=== PATIENT | male | born 1975 | race Caucasian/White ===

== ENCOUNTER 2020-11-08 18:04 | Emergency (ER) | payer SELFPAY ==
[~2020-11-08] VITALS: Ht 170.2 cm; Wt 108.9 kg
[2020-11-08 18:05] VITALS: BP 133/88
--- NOTE | 2020-11-08 18:44 | NUR ---
Patient discharged with v/s stable, AAOX4, IN NAD. Written and verbal after care instructions given and explained. Patient verbalized understanding. Ambulatory with steady gait. All questions addressed prior to discharge. Advised to follow up with PMD. PT IN AGREEMENT WITH PLAN OF CARE.
== END 2020-11-08 18:43 | disposition home or self-care (01) ==
LOC: MED 18:04
DX: F10.129 Alcohol abuse with intoxication, unspecified (principal); Y90.9 Presence of alcohol in blood, level not specified
CPT/HCPCS: 99283

== ENCOUNTER 2024-02-01 07:08 | Emergency (ER) | payer MEDICAID ==
[~2024-02-01] VITALS: Ht 172.7 cm; Wt 95.3 kg
[2024-02-01 07:28] VITALS: BP 124/64; PULSE 122; RESP 20; TEMP 98.3; O2SAT 98
[2024-02-01 07:54] LABS: BASOPHILS # (AUTO) 0.1 K/uL (0.00-0.22); BASOPHILS % (AUTO) 0.7 % (0.0-2.0); EOSINOPHILS % (AUTO) 0.1 % (0.0-4.0); HEMATOCRIT 35.3 % (36-52); HEMOGLOBIN 12.3 g/dL (12.0-18.0); LYMPHOCYTES # (AUTO) 3.3 K/uL (2.0-11.5); LYMPHOCYTES % (AUTO) 29.5 % (20.5-51.1); MEAN CORPUSCULAR HEMOGLOBIN 33 pg (27-31); MEAN CORPUSCULAR HGB CONC 35 g/dL (33-37); MEAN CORPUSCULAR VOLUME 95.8 fL (80-94); MONOCYTES # (AUTO) 0.6 K/uL (0.8-1.0); MONOCYTES % (AUTO) 5.7 % (1.7-9.3); NEUTROPHILS # (AUTO) 7.3 K/uL (1.8-7.7); PLATELET COUNT (AUTO) 595 K/uL (140-450); RED BLOOD CELL COUNT(AUTO) 3.68 MIL/uL (4.20-6.10); RED CELL DISTRIBUTION WIDTH 14.2 % (11.6-13.7); WHITE BLOOD COUNT (AUTO) 11.3 K/uL (4.8-10.8)
[2024-02-01 08:10] LABS: ANION GAP 18.9 (8-16); CALCIUM 8.6 mg/dL (8.5-10.1); CARBON DIOXIDE 25.5 mmol/L (21-32); CREATININE 0.9 mg/dL (0.6-1.3); POTASSIUM 3.4 mmol/L (3.5-5.1)
[2024-02-01 08:15] LABS: BILIRUBIN,DIRECT 0.1 mg/dL (0.0-0.3); TOTAL BILIRUBIN 0.4 mg/dL (0.0-1.0); TOTAL PROTEIN, SERUM 7.9 g/dL (6.4-8.2)
[2024-02-01] MEDS: NACL 0.9% 2,000 ML IV ONE (08:28)
[2024-02-01] MEDS: THIAMINE 200 MG/2 ML VIAL IV ONE (08:31)
[2024-02-01 11:11] VITALS: O2SAT 94
[2024-02-01 13:12] VITALS: O2SAT 96
[2024-02-01] MEDS: KETOROLAC 30 MG/ML VIAL IVP ONE (14:02)
[2024-02-01 14:05] LABS: AMPHETAMINE, URINE NEGATIVE ng/ml (NEG <=1000); BARBITURATE, URINE NEGATIVE ng/ml (NEG <=200); BENZODIAZEPINE, URINE NEGATIVE ng/mL (NEG <=200); CANNABINOID, URINE NEGATIVE ng/mL (NEG <=50); COCAINE, URINE NEGATIVE ng/mL (NEG <=300); OPIATE, URINE NEGATIVE ng/mL (NEG <=2000); PHENCYCLIDINE SCREEN,URINE NEGATIVE ng/mL (NEG <=25)
[2024-02-01] MEDS: NACL 0.9% 1,000 ML IV ONE (16:16)
[2024-02-01 16:20] VITALS: O2SAT 94
[2024-02-01 16:42] VITALS: BP 122/63; PULSE 110; RESP 16; TEMP 98.1; O2SAT 96
== END 2024-02-01 16:42 | disposition home or self-care (01) ==
LOC: MED 07:08
DX: F10.129 Alcohol abuse with intoxication, unspecified (principal); R41.82 Altered mental status, unspecified; E86.0 Dehydration; Y90.9 Presence of alcohol in blood, level not specified
CPT/HCPCS: 36415; 70450; 80048; 80076; 80305; 85025; 96361; 96374; 96375; 99285; G0482; J1885; J3411

== ENCOUNTER 2024-02-06 10:43 | Inpatient (IN) | payer MEDICAID ==
[~2024-02-06] VITALS: Ht 170.2 cm; Wt 104.0 kg
[2024-02-06 10:55] VITALS: BP 149/92; PULSE 120; RESP 22; TEMP 98.1; O2SAT 98
[2024-02-06] MEDS: NACL 0.9% 1,000 ML IV ONE (11:48)
[2024-02-06] MEDS: LORazepam 1 MG TAB PO ONE (11:53)
[2024-02-06] MEDS: LORazepam 2 MG/ML VIAL IVP ONE (11:58)
[2024-02-06 12:00] LABS: BASOPHILS % (AUTO) 0.6 % (0.0-2.0); EOSINOPHILS % (AUTO) 0.2 % (0.0-4.0); HEMOGLOBIN 11.2 g/dL (12.0-18.0); LYMPHOCYTES # (AUTO) 1.6 K/uL (2.0-11.5); MEAN CORPUSCULAR HEMOGLOBIN 33 pg (27-31); MEAN CORPUSCULAR HGB CONC 35 g/dL (33-37); MEAN CORPUSCULAR VOLUME 95.2 fL (80-94); MONOCYTES # (AUTO) 0.3 K/uL (0.8-1.0); MONOCYTES % (AUTO) 4.5 % (1.7-9.3); NEUTROPHILS % (AUTO) 71.7 % (42.2-75.2); PLATELET COUNT (AUTO) 324 K/uL (140-450); RED BLOOD CELL COUNT(AUTO) 3.36 MIL/uL (4.20-6.10); RED CELL DISTRIBUTION WIDTH 14.7 % (11.6-13.7)
[2024-02-06 12:07] LABS: ANION GAP 17.7 (8-16); CALCIUM 8.7 mg/dL (8.5-10.1); CARBON DIOXIDE 26.1 mmol/L (21-32); CREATININE 0.7 mg/dL (0.6-1.3)
[2024-02-06 12:20] LABS: POTASSIUM 2.8 mmol/L (3.5-5.1)
[2024-02-06 12:21] LABS: LACTIC ACID 3.7 mmol/L (0.4-2.0)
[2024-02-06] MEDS ORDERED: NACL 0.9% 2,500 ML IV ONE (13:40)
[2024-02-06] MEDS ORDERED: VANCOMYCIN 1,000 MG VIAL ONE (14:13)
[2024-02-06] MEDS ORDERED: PIPERACILLIN/TAZOBACTAM 3.375 GM VIAL IV ONE (14:14)
[2024-02-06] MEDS: MAG SULF 2000 MG/WATER PREMIX 50 ML IV ONE (14:28)
[2024-02-06] MEDS: PIPERACILLIN/TAZOBACTAM 3.375 GM in DEXTROSE 5% 50 ML IV ONE (14:30)
[2024-02-06] MEDS: NACL 0.9% 2,500 ML IV ONE (14:38)
[2024-02-06] MEDS ORDERED: IBUP-2213 PO (14:52)
[2024-02-06] MEDS: VANCOMYCIN 1,000 MG in DEXTROSE 5% 250 ML IV ONE (15:35)
[2024-02-06] MEDS ORDERED: LORazepam 1 MG TAB PO PRN (15:55)
[2024-02-06] MEDS ORDERED: LORazepam 2 MG/ML VIAL IVP PRN (16:00)
[2024-02-06] MEDS ORDERED: VANCOMYCIN PER PHARMACY MC PRN (16:40)
[2024-02-06] MEDS ORDERED: KCL 20 MEQ IN 100 mL PREMIX 100 ML IV ONE (16:57)
[2024-02-06] MEDS: NACL 0.9% 1,000 ML IV SCH (17:05)
[2024-02-06] MEDS: KCL 20 MEQ IN 100 mL PREMIX 100 ML IV ONE (17:06)
[2024-02-06] MEDS: FOLIC ACID 1 MG TAB PO SCH (18:42)
[2024-02-06] MEDS: THIAMINE 200 MG/2 ML VIAL IM SCH (18:43)
[2024-02-06 19:07] LABS: CHOL/HDL RATIO 4.2 (1-4.5)
[2024-02-06] MEDS: MAG SULF 2000 MG/WATER PREMIX 50 ML IV SCH (20:15)
[2024-02-06] MEDS: chlordiazePOXIDE 25 MG CAP PO SCH (21:17)
[2024-02-06 21:20] VITALS: BP 138/88; PULSE 104; RESP 18; TEMP 97.2; O2SAT 96
[2024-02-06 21:24] VITALS: PULSE 113
[2024-02-06] MEDS: VANCOMYCIN 1.25GM PREMIX 250 ML IV SCH (22:05)
[2024-02-06] MEDS: PIPERACILLIN/TAZOBACTAM 3.375 GM in DEXTROSE 5% 50 ML IV SCH (23:58)
[2024-02-07] VITALS (11 sets, daily range): BP systolic 116–145; BP diastolic 67–90; PULSE 75–98; RESP 16–18; TEMP 97.1–98.2; O2SAT 97–100
[2024-02-07] MEDS ORDERED: VANCOMYCIN 1GM/DEXT 5% PREMIX 200 ML IV SCH (00:30)
[2024-02-07] MEDS ORDERED: ONDANSETRON 4 MG/2 ML VIAL IVP PRN (00:40)
[2024-02-07 02:42] LABS: AMPHETAMINE, URINE NEGATIVE ng/ml (NEG <=1000); BARBITURATE, URINE NEGATIVE ng/ml (NEG <=200); BENZODIAZEPINE, URINE POSITIVE ng/mL (NEG <=200); CANNABINOID, URINE NEGATIVE ng/mL (NEG <=50); COCAINE, URINE NEGATIVE ng/mL (NEG <=300); OPIATE, URINE NEGATIVE ng/mL (NEG <=2000); PHENCYCLIDINE SCREEN,URINE NEGATIVE ng/mL (NEG <=25)
[2024-02-07 06:57] LABS: BASOPHILS % (AUTO) 0.4 % (0.0-2.0); EOSINOPHILS # (AUTO) 0.1 K/uL (0-0.4); EOSINOPHILS % (AUTO) 0.9 % (0.0-4.0); HEMATOCRIT 31.3 % (36-52); LYMPHOCYTES # (AUTO) 1.1 K/uL (2.0-11.5); LYMPHOCYTES % (AUTO) 14.4 % (20.5-51.1); MEAN CORPUSCULAR HEMOGLOBIN 34 pg (27-31); MEAN CORPUSCULAR HGB CONC 35 g/dL (33-37); MONOCYTES # (AUTO) 0.4 K/uL (0.8-1.0); MONOCYTES % (AUTO) 4.9 % (1.7-9.3); NEUTROPHILS # (AUTO) 6.1 K/uL (1.8-7.7); NEUTROPHILS % (AUTO) 79.4 % (42.2-75.2); PLATELET COUNT (AUTO) 286 K/uL (140-450); RED BLOOD CELL COUNT(AUTO) 3.26 MIL/uL (4.20-6.10); RED CELL DISTRIBUTION WIDTH 14.2 % (11.6-13.7); WHITE BLOOD COUNT (AUTO) 7.7 K/uL (4.8-10.8)
[2024-02-07 07:17] LABS: CHOL/HDL RATIO 3.5 (1-4.5)
[2024-02-07 07:32] LABS: MAGNESIUM 1.6 mg/dL (1.8-2.4)
[2024-02-07] MEDS: DOCUSATE SODIUM 100 MG GELCAP PO SCH (08:07)
[2024-02-07] MEDS: PANTOPRAZOLE 40 MG INJ VIAL IVP SCH (08:07)
[2024-02-07] MEDS: MULTIVITAMIN 1 TAB PO SCH (08:08)
[2024-02-07] MEDS: MAGNESIUM OXIDE 400 MG TAB PO SCH (10:39)
[2024-02-07] MEDS ORDERED: HYDRAGUARD CREAM TP PRN (11:00)
[2024-02-07] MEDS: NON ADHERENT DRESSING TP PRN (11:05)
[2024-02-07] MEDS: HYDRAGUARD CREAM TP SCH (11:08)
[2024-02-07] MEDS ORDERED: SKINTEGRITY HYDROGEL TP PRN (12:25)
[2024-02-08] VITALS (9 sets, daily range): BP systolic 121–134; BP diastolic 70–84; PULSE 70–101; RESP 16–21; TEMP 97–97.8; O2SAT 98–100
[2024-02-08 07:39] LABS: ANION GAP 15.3 (8-16); CALCIUM 8.4 mg/dL (8.5-10.1); CREATININE 0.6 mg/dL (0.6-1.3); POTASSIUM 3.3 mmol/L (3.5-5.1)
[2024-02-08] MEDS: FLUCONAZOLE 100 MG TAB PO SCH (08:12)
[2024-02-08 08:36] LABS: MAGNESIUM 1.5 mg/dL (1.8-2.4); PHOSPHORUS 3.6 mg/dL (2.5-4.9)
[2024-02-08] MEDS: KCL 20 MEQ IN 100 mL PREMIX 200 ML IV ONE (10:18)
[2024-02-08] MEDS: SKINTEGRITY HYDROGEL TP SCH (12:09)
[2024-02-08] MEDS: MAG SULF 2000 MG/WATER PREMIX 50 ML IV SCH (14:54)
[2024-02-08] MEDS: ZOLPIDEM 5 MG TAB PO PRN (21:22)
[2024-02-09] VITALS: BP 118/71; PULSE 81; PULSE 82; RESP 21; TEMP 97.7; O2SAT 97
[2024-02-09 04:13] VITALS: PULSE 72
[2024-02-09] MEDS ORDERED: LEVO750T75 PO (06:53)
[2024-02-09] MEDS ORDERED: SULF-59 PO (06:53)
[2024-02-09] MEDS ORDERED: TERB-5 PO (07:12)
[2024-02-09 07:30] LABS: BASOPHILS % (AUTO) 0.7 % (0.0-2.0); EOSINOPHILS # (AUTO) 0.3 K/uL (0-0.4); HEMATOCRIT 32.1 % (36-52); HEMOGLOBIN 11.2 g/dL (12.0-18.0); LYMPHOCYTES # (AUTO) 1.3 K/uL (2.0-11.5); LYMPHOCYTES % (AUTO) 25.3 % (20.5-51.1); MEAN CORPUSCULAR HEMOGLOBIN 34 pg (27-31); MEAN CORPUSCULAR HGB CONC 35 g/dL (33-37); MONOCYTES # (AUTO) 0.3 K/uL (0.8-1.0); NEUTROPHILS # (AUTO) 3.3 K/uL (1.8-7.7); PLATELET COUNT (AUTO) 230 K/uL (140-450); RED BLOOD CELL COUNT(AUTO) 3.31 MIL/uL (4.20-6.10); RED CELL DISTRIBUTION WIDTH 14.5 % (11.6-13.7); WHITE BLOOD COUNT (AUTO) 5.3 K/uL (4.8-10.8)
[2024-02-09 07:43] LABS: ANION GAP 13.5 (8-16); CALCIUM 8.4 mg/dL (8.5-10.1); CARBON DIOXIDE 24.9 mmol/L (21-32); CREATININE 0.6 mg/dL (0.6-1.3); MAGNESIUM 1.9 mg/dL (1.8-2.4); PHOSPHORUS 3.6 mg/dL (2.5-4.9); POTASSIUM 3.4 mmol/L (3.5-5.1); TOTAL BILIRUBIN 0.5 mg/dL (0.0-1.0); TOTAL PROTEIN, SERUM 6.4 g/dL (6.4-8.2)
[2024-02-09 08:00] VITALS: BP 117/75; PULSE 76; PULSE 77; PULSE 93; RESP 16; RESP 18; TEMP 97.6; O2SAT 95; O2SAT 97
[2024-02-09 10:04] VITALS: BP 111/77; RESP 18; TEMP 97.6
[2024-02-09] MEDS: ACETAMINOPHEN 325 MG TAB PO PRN (12:15)
== END 2024-02-09 15:25 | disposition home health service (06) | DRG 816 ==
LOC: MED 10:43 → MMU 15:59 → MTU 17:29
PROVIDERS: ADMIT Student in an Organized Health Care Education/Training Program; ATTEND Student in an Organized Health Care Education/Training Program
DX: T51.0X1A Toxic effect of ethanol, accidental (unintentional), initial encounter (principal); E87.20 Acidosis, unspecified; R65.10 Systemic inflammatory response syndrome (SIRS) of non-infectious origin without acute organ dysfunction; L03.116 Cellulitis of left lower limb; B35.3 Tinea pedis; D53.9 Nutritional anemia, unspecified; E83.42 Hypomagnesemia; F10.239 Alcohol dependence with withdrawal, unspecified; E87.6 Hypokalemia; I87.8 Other specified disorders of veins; Z79.4 Long term (current) use of insulin; Y90.6 Blood alcohol level of 120-199 mg/100 ml
CPT/HCPCS: 36415; 73610; 80048; 80053; 80202; 80305; 83036; 83605; 83735; 84100; 85025; 85651; 86140; 87040; 87081; 96361; 96366; 96368; 96375; 99291; A6248; C9113; G0482; J2060; J2543; J3370; J3372; J3411; J3475; J3480; J7060

== ENCOUNTER 2024-06-21 12:20 | Emergency (ER) | payer MEDICAID ==
[~2024-06-21] VITALS: Ht 170.2 cm; Wt 104.3 kg
[~2024-06-21 12:20] MED LIST: IBUP-2213 PO; LEVO750T75 PO; SULF-59 PO; TERB-5 PO
[2024-06-21 12:39] VITALS: BP 147/85; PULSE 107; RESP 16; TEMP 98.9; O2SAT 98
[2024-06-21] MEDS ORDERED: BACI-418 TP (13:55)
[2024-06-21] MEDS ORDERED: SULF-59 PO (13:55)
[2024-06-21] MEDS ORDERED: CEPH-588 PO (13:55)
[2024-06-21] MEDS ORDERED: ACET-8905 PO (13:55)
[2024-06-21] MEDS ORDERED: IBUP-2213 PO (13:55)
[2024-06-21] MEDS: KETOROLAC 30 MG/ML VIAL IM ONE (13:56)
[2024-06-21] MEDS: BACITRACIN OINT 500 UNITS/GM PKT TP ONE (14:16)
== END 2024-06-21 14:16 | disposition home or self-care (01) ==
LOC: MED 12:20
DX: S81.801A Unspecified open wound, right lower leg, initial encounter (principal); L03.115 Cellulitis of right lower limb; Z79.899 Other long term (current) drug therapy; X58.XXXA Exposure to other specified factors, initial encounter; Y92.89 Other specified places as the place of occurrence of the external cause; Y93.89 Activity, other specified; Y99.8 Other external cause status
CPT/HCPCS: 96372; 99283; J1885